=== PATIENT | female | born 1955 | race Caucasian/White ===

== ENCOUNTER → 2018-04-16 14:57 | Outpatient (CLI) | payer MEDICARE, SELFPAY ==
--- NOTE | 2018-04-16 15:00 | MM_ITS ---
MM Dig screening mamm BI w/CAD CAD Screening COMPARISON: Digital mammograms with CAD from [facility] 10/16/2014 and 05/10/2016 INDICATION: There is a history of breast cancer in patient's daughter and the patient's 2 maternal aunts TECHNIQUE: Standard CC and MLO images were obtained. R2 CAD reviewed. FINDINGS: Moderate somewhat heterogenic fibroglandular densities are seen in central portions of both breast. The findings are stable and unchanged from previous exams. There is no suspicious lesion and there are no suspicious microcalcifications. IMPRESSION: Moderate breast density with no suspicious lesion seen BI-RADS Category: 1 Negative RECOMMENDED FOLLOW-UP: 1YR - 1 YEAR FOLLOW-UP (A letter has been sent to the patient regarding results of the study.)
== END ==
PROVIDERS: PCP Family Medicine; Visit Provider Family Medicine
DX: Z12.31 Encounter for screening mammogram for malignant neoplasm of breast (principal)
CPT/HCPCS: 77067

== ENCOUNTER → 2018-04-26 14:47 | Outpatient (CLI) | payer MEDICARE, SELFPAY ==
--- NOTE | 2018-04-26 14:48 | CT_ITS ---
CT sinus wo con CLINICAL INDICATION: Recurrent sinus infections, right-sided facial pressure ITS.REASON: sinusitis ORDERING PHYSICIAN: Patrick Wellington MD PATIENT AGE: 62 years COMPARISON: None TECHNIQUE:Axial images obtained with sagittal and coronal reformats. All CT scans at the facility use one or more dose reduction, viz: automated exposure control, ma/kV adjustment per patient size (including targeted exams where dose is matched to indication, i.e. head), or iterative reconstruction technique. FINDINGS: No sinus air-fluid level. No fracture or dislocation. The right maxillary sinus is smaller than the left side less than one half the size of the left maxillary sinus. There is some minimal mucosal thickening involving the medial wall the right maxillary sinus. The ostiomeatal complexes are patent. No sinus mass. The frontal, ethmoid, sphenoid sinuses have an unremarkable. No mastoid effusion. The middle ears are well aerated. There are few scattered small nodes in the neck. There is mild bilateral TMJ arthropathy. The orbits have an unremarkable appearance. There is mild rightward nasal septal deviation. IMPRESSION: 1. 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 2. Minimal rightward nasal septal deviation. 3. Mild TMJ arthropathy bilaterally
== END ==
PROVIDERS: PCP Family Medicine; Visit Provider Otolaryngology
DX: J32.0 Chronic maxillary sinusitis (principal); F17.210 Nicotine dependence, cigarettes, uncomplicated
CPT/HCPCS: 70486